=== PATIENT | female | born 1945 | race Caucasian/White ===

== ENCOUNTER → 2016-10-23 | Outpatient (CLI) | payer MEDICARE ==
--- NOTE | ~2016-10-23 | MY11 ---
[facility] A Service of [facility] RADIOLOGY TEXT RESULTS PATIENT: CHRISTINADECEMBER LOCATION: [facility] : 49 UNIT #: [id number] AGE: [address]: Cindy Ventura MD SEX: F ORDER DR: [id number] [address] [address] [id number] O MR#: [id number] Acc #: [id number] NAME: SHIELA VASQUEZ : 1945 SEX: F STUDY DATE/TIME: 10/23/2016 14:28 UNIT: [facility] ROOM: STUDY DESCRIPTION: MY Mammogram Screening Dig Luigi Attending Physician: Cindy Ventura M.D. Referring Physician: Cindy Ventura M.D. Ordering Physician: Cindy Ventura M.D. Primary Care Physician: Cindy Ventura M.D. MEDICAL IMAGING REPORT This report is preliminary unless electronic signature is present. EXAM Digital screening mammogram, 10/23/2016 HISTORY 71-year-old woman positive family history, niece in her 40s. Previous benign right breast biopsy. COMPARISON Mammograms date to 04/12/2006 with most recent 05/04/2014. FINDINGS Digital imaging of each breast was completed utilizing screening protocol. Review includes FDA-approved CAD device. Breast parenchyma is partially fatty replaced and mildly heterogeneous. There is mild focal parenchymal dominance projecting deep central right breast noted on the CC view but not clearly apparent on the MLO view. It should be in the upper hemisphere. This will require additional evaluation with true lateral projection and high-resolution spot compression views. Targeted ultrasound will be performed if indicated at the time. Occasional circumscribed nodule in each breast is stable. I see no suspicious microcalcifications. IMPRESSION Incomplete mammographic evaluation. Additional right breast imaging is recommended. See full report with recommendations. Patients over the age of 40 are entered into a reminder system with target due date for the next mammogram. A result letter will also be sent to the patient. BIRADS 0 Incomplete: Need Additional Imaging Evaluation and/or Prior Mammograms for Comparison [facility] A Service of [facility] RADIOLOGY TEXT RESULTS PATIENT: CHRISTINADECEMBER LOCATION: [facility] : 49 UNIT #: [id number] AGE: [address]: Cindy Ventura MD SEX: F ORDER DR: STAT * RESULT Dictated by... Paulino Torres M.D. THIS IS AN ELECTRONICALLY VERIFIED REPORT Paulino Torres M.D. at 10/26/2016 8:06 AM Kashif TD: 10/23/2016 14:58 JOB #: [id number] MEDICAL IMAGING REPORT Page 1 of 1
--- NOTE | ~2016-10-23 | BD1 ---
[facility] A Service of [facility] RADIOLOGY TEXT RESULTS PATIENT: SHIELA VASQUEZ LOCATION: [facility] : 49 UNIT #: [id number] AGE: [address]: Cindy Ventura MD SEX: F ORDER DR: [id number] [address] [address] [id number] O MR#: [id number] Acc #: [id number] NAME: SHIELA VASQUEZ : 1945 SEX: F STUDY DATE/TIME: 10/23/2016 13:48 UNIT: [facility] ROOM: STUDY DESCRIPTION: BD Dexa Bone Dens 1+ Site Attending Physician: Cindy Ventura M.D. Referring Physician: Cindy Ventura M.D. Ordering Physician: Cindy Ventura M.D. Primary Care Physician: Cindy Ventura M.D. MEDICAL IMAGING REPORT This report is preliminary unless electronic signature is present. EXAM DXA scan, 10/23/2016. HISTORY Status post menopause with no hormone replacement therapy. Osteopenia. FINDINGS Bone mineral density in the lumbar spine from L1-L4 was 1.092 g/cm2 which is 0.7 standard deviations below the mean when compared to the young adult reference population which is within the range of normal. This is 0.5 standard deviations above the mean when compared to the age-matched population. Bone mineral density in the left femoral neck was 0.802 g/cm2 which is 1.7 standard deviations below the mean when compared to the young adult reference population which is characteristic of osteopenia. This is 0.3 standard deviations below the mean when compared to the age-matched population. Bone mineral density in the right femoral neck was 0.761 g/cm2 which is 2 standard deviations below the mean when compared to young adult reference population which is characteristic of osteopenia. This is 0.6 standard deviations below the mean when compared to the age-matched population. IMPRESSION Bone mineral density in the lumbar spine within the range of normal and within the hips bilaterally characteristic of osteopenia. Dictated by... Floyd Lamas M.D. [facility] A Service of [facility] RADIOLOGY TEXT RESULTS PATIENT: CHRISTINADECEMBER LOCATION: [facility] : 49 UNIT #: [id number] AGE: [address]: Cindy Ventura MD SEX: F ORDER DR: THIS IS AN ELECTRONICALLY VERIFIED REPORT Floyd Lamas M.D. at 10/23/2016 4:59 PM AMI/masood TD: 10/23/2016 16:13 JOB #: [id number] MEDICAL IMAGING REPORT Page 1 of 1
== END | disposition home or self-care (01) ==
LOC: SMAM 13:20
DX: Z12.31 Encounter for screening mammogram for malignant neoplasm of breast (principal); Z13.820 Encounter for screening for osteoporosis; Z80.3 Family history of malignant neoplasm of breast; Z78.0 Asymptomatic menopausal state
CPT/HCPCS: 77080; G0202

== ENCOUNTER → 2016-11-03 | Outpatient (CLI) | payer MEDICARE ==
--- NOTE | ~2016-11-03 | US24 ---
[facility] A Service of [facility] RADIOLOGY TEXT RESULTS PATIENT: CHRISTINASHIELA LOCATION: [facility] : 49 UNIT #: [id number] AGE: [address]: Cindy Ventura MD SEX: F ORDER DR: [id number] [facility] [address] [place], [place] [address] [id number] O MR#: [id number] Acc #: [id number] NAME: SHIELA VASQUEZ : 1945 SEX: F STUDY DATE/TIME: 11/03/2016 11:54 UNIT: [facility] ROOM: STUDY DESCRIPTION: US Breast Unilateral Attending Physician: Cindy Ventura M.D. Referring Physician: Cindy Ventura M.D. Ordering Physician: Cindy Ventura M.D. Primary Care Physician: Cindy Ventura M.D. MEDICAL IMAGING REPORT This report is preliminary unless electronic signature is present EXAM Left breast ultrasound INDICATIONS Abnormal mammogram. FINDINGS Please refer to the diagnostic mammogram report for details on the left breast ultrasound. There are a few benign cysts. IMPRESSION Benign ultrasound. BIRADS: 2 Benign Finding. Dictated by... Gomez Villeda M.D. THIS IS AN ELECTRONICALLY VERIFIED REPORT Gomez Villeda M.D. at 11/03/2016 5:15 PM TOR/tyrone TD: 11/03/2016 15:23 JOB #: [id number] MEDICAL IMAGING REPORT Page 1 of 1 COPY
--- NOTE | ~2016-11-03 | MY8 ---
[facility] A Service of [facility] RADIOLOGY TEXT RESULTS PATIENT: CHRISTINASHIELA LOCATION: [facility] : 49 UNIT #: [id number] AGE: [address]: Cindy Ventura MD SEX: F ORDER DR: [id number] [facility] [address] [place], [place] [address] [id number] O MR#: [id number] Acc #: [id number] NAME: SHIELA VASQUEZ : 1945 SEX: F STUDY DATE/TIME: 11/03/2016 11:26 UNIT: [facility] ROOM: STUDY DESCRIPTION: MY Mammogram Dx Dig Rt Attending Physician: Cindy Ventura M.D. Referring Physician: Cindy Ventura M.D. Ordering Physician: Cindy Ventura M.D. Primary Care Physician: Cindy Ventura M.D. MEDICAL IMAGING REPORT This report is preliminary unless electronic signature is present EXAM Right digital diagnostic mammogram with CAD and diagnostic right breast ultrasound. HISTORY 71-year-old female with no personal history of breast cancer. Patient reports for abnormal screening mammogram. FINDINGS RIGHT MAMMOGRAM: Spot compression CC, rolled medial and rolled lateral CC, LM, and spot compression LM views of the right breast were obtained. The background breast parenchyma consists of scattered fibroglandular densities. No suspicious mass, microcalcification or architectural distortion. The asymmetry described on the screening mammogram resolved on the spot compression views. The exam is compared to multiple prior mammograms dating back to 11/01/2009. RIGHT BREAST ULTRASOUND: Kessler-scale and color Doppler ultrasound of the right breast was performed. There are a few small cysts in the breast, including a 0.8 cm cyst at the 12 o'clock position, approximately 2 cm from the nipple. No suspicious mass or lesion is identified. IMPRESSION Benign mammogram. No suspicious findings are identified. RECOMMENDATIONS Annual screening mammogram. BIRADS: 2 Benign Finding. Patients over the age of 40 are entered into a reminder system with target due date for the next mammogram. A result letter will also be sent to the [facility] A Service of [facility] RADIOLOGY TEXT RESULTS PATIENT: CHRISTINADECEMBER LOCATION: [facility] : 49 UNIT #: [id number] AGE: [address]: Cindy Ventura MD SEX: F ORDER DR: patient. Dictated by... Gomez Villeda M.D. THIS IS AN ELECTRONICALLY VERIFIED REPORT Gomez Villeda M.D. at 11/03/2016 5:15 PM RPC/pcl TD: 11/03/2016 15:05 JOB #: [id number] MEDICAL IMAGING REPORT Page 1 of 1 COPY
== END | disposition home or self-care (01) ==
LOC: CMAM 10:42
DX: R92.8 Other abnormal and inconclusive findings on diagnostic imaging of breast (principal)
CPT/HCPCS: 76641; G0206